=== PATIENT | male | born 1930 | race Caucasian/White ===

== ENCOUNTER 2017-01-29 16:17 | Emergency (ER) | payer MEDICARE, BC ==
[2017-01-29 16:47] VITALS: BP 160/41
--- NOTE | 2017-01-29 17:19 | EDM.PDOC ---
ED HPI GENERAL MEDICAL PROBLEM - General Chief Complaint: General Stated Complaint: FELL AT HOME Time Seen by Provider: 01/29/17 16:57 Source of Information: Reports: Family History Limitations: Reports: No limitations - History of Present Illness INITIAL COMMENTS - FREE TEXT/NARRATIVE: History of present illness: [86-year-old male is here with family. He was recently started on Cipro because he has a history of dementia and exposes himself and his sexual fantasies this was just started and since then he has become very unsteady on his feet and has fallen twice but has not hurt himself. Family is here wondering what to do] Review of systems: As per history of present illness and below otherwise all systems reviewed and negative. Past medical history: As per history of present illness and as reviewed below otherwise noncontributory. Surgical history: As per history of present illness and as reviewed below otherwise noncontributory. Social history: No reported history of drug or alcohol abuse. Family history: As per history of present illness and as reviewed below otherwise noncontributory. Physical exam: HEENT: Atraumatic, normocephalic, pupils reactive, negative for conjunctival pallor or scleral icterus, mucous membranes moist, throat clear, neck supple, nontender, trachea midline. Lungs: Clear to auscultation, breath sounds equal bilaterally, chest nontender. Heart: S1S2, regular, negative for clicks, rubs, or JVD. Abdomen: Soft, nondistended, nontender. Extremities: Atraumatic, Neuro: Awake, alert, Exam nonfocal. Diagnostics: [] Therapeutics: [] Impression: [Dementia with sexual fantasies acted out] Plan: [Had a long discussion with the family. It's frustrating problem. I think the risk of falling is greater than the risk of exposing himself at this point so we are recommending that this medication be stopped. They will followup with their primary care provider. We discussed the possibility that he may eventually need to be in a usp. We also discussed the possibility of involvement of the psychiatrist to try to see if another medication could be tried it would work for him and controlling this problem he has.] Definitive disposition and diagnosis as appropriate pending reevaluation and review of above. - Related Data Allergies Allergy/AdvReac Type Severity Reaction Status Date / Time Penicillins Allergy Cannot Verified 01/29/17 16:25 Remember Home Meds: Home Meds Aspirin [Ecotrin] 325 mg PO DAILY 11/25/13 [History] Atenolol 75 mg PO DAILY 11/25/13 [History] Famotidine [Pepcid] 10 mg PO DAILY 11/25/13 [History] Ferrous Sulfate [Iron Supplement] 325 mg PO DAILY 11/25/13 [History] Clopidogrel Bisulfate [Clopidogrel] 75 mg PO 11/26/13 [History] QUEtiapine Fumarate [Quetiapine Fumarate] 01/29/17 [History] Sulfamethoxazole/Trimethoprim [Sulfamethoxazole-Tmp Ds Tablet] 01/29/17 [ History] Past Medical History Cardiovascular History: Reports: CAD, Hypertension, Pacemaker Respiratory History: Reports: COPD, Pulmonary fibrosis Genitourinary History: Reports: UTI, recurrent Neurological History: Reports: CVA Psychiatric History: Reports: Dementia - Past Surgical History GI Surgical History: Reports: Cholecystectomy, Hernia repair/other Social & Family History - Tobacco Use Smoking Status *Q: Never Smoker Second Hand Smoke Exposure: No - Alcohol Use Days Per Week of Alcohol Use: 0 - Recreational Drug Use Recreational Drug Use: No ED ROS GENERAL - Review of Systems Review Of Systems: ROS reveals no pertinent complaints other than HPI. ED EXAM, GENERAL - Physical Exam Exam: See Below Course - Vital Signs Last Recorded V/S: Last Vital Signs Temp 37.7 C 01/29/17 16:45 Pulse 59 L 01/29/17 16:45 Resp 20 01/29/17 16:45 BP 160/41 H 01/29/17 16:45 Pulse Ox 98 01/29/17 16:45 Departure - Departure Time of Disposition: 17:18 Disposition: Home, Self-Care 01 Condition: fair Clinical Impression: Dementia Qualifiers: Dementia type: unspecified type Dementia behavioral disturbance: with behavioral disturbance Qualified Code(s): F03.91 - Unspecified dementia with behavioral disturbance Forms: ED Department Discharge Additional Instructions: As per our discussion make an appointment to see Dr. Alvarez again and work with him and trying to figure out what could be the best course to pursue. Involvement of all the family members and discussing this would be important social work might also be an option a psychiatrist may also be part of the team in trying to figure out what would be best to do.
== END 2017-01-29 17:38 | disposition home or self-care (01) ==
LOC: JP.ED 16:17
DX: F03.91 Unspecified dementia, unspecified severity, with behavioral disturbance (principal); I25.10 Atherosclerotic heart disease of native coronary artery without angina pectoris; I10 Essential (primary) hypertension; Z88.0 Allergy status to penicillin; Z79.82 Long term (current) use of aspirin; Z79.02 Long term (current) use of antithrombotics/antiplatelets; Z79.899 Other long term (current) drug therapy; Z95.0 Presence of cardiac pacemaker; Z98.890 Other specified postprocedural states
CPT/HCPCS: 99284

== ENCOUNTER 2017-01-30 07:28 | Observation (INO) | payer MEDICARE, BC ==
--- NOTE | 2017-01-30 09:27 | EDM.PDOC ---
ED HPI GENERAL MEDICAL PROBLEM - General Chief Complaint: General Stated Complaint: WEAKNESS Time Seen by Provider: 01/30/17 07:40 Source of Information: Reports: Patient, Family History Limitations: Reports: No limitations - History of Present Illness INITIAL COMMENTS - FREE TEXT/NARRATIVE: pt arrived with a 1 week history of frequent falls. He fell again last nite and did not injure himse;lf. He has a history of stage 3 kidney failure. he has not had a recent cat scan of the head. He hads a history of dementia. He has not been drinking or eating normally. Onset: gradual, other ( started 1 week ago. ) Duration: Day(s):, Getting worse Location: Reports: other ( Pt has been falling very frequently. ) Associated Symptoms: Reports: weakness, other (Pt is so weak in his arms and legs that he can,t help to get himself up. He has been falling frequently. ) - Related Data Allergies Allergy/AdvReac Type Severity Reaction Status Date / Time Penicillins Allergy Cannot Verified 01/29/17 16:25 Remember Home Meds: Home Meds Aspirin [Ecotrin] 325 mg PO DAILY 11/25/13 [History] Atenolol 75 mg PO DAILY 11/25/13 [History] Famotidine [Pepcid] 10 mg PO DAILY 11/25/13 [History] Ferrous Sulfate [Iron Supplement] 325 mg PO DAILY 11/25/13 [History] Clopidogrel Bisulfate [Clopidogrel] 75 mg PO DAILY 11/26/13 [History] QUEtiapine Fumarate [Quetiapine Fumarate] 01/29/17 [History] Sulfamethoxazole/Trimethoprim [Sulfamethoxazole-Tmp Ds Tablet] 01/29/17 [ History] Past Medical History HEENT History: Reports: Hard of hearing Cardiovascular History: Reports: CAD, Hypertension, Pacemaker Respiratory History: Reports: COPD, Pulmonary fibrosis Genitourinary History: Reports: UTI, recurrent Other Genitourinary History: stage 3 kidney disease Neurological History: Reports: CVA Psychiatric History: Reports: Dementia - Past Surgical History GI Surgical History: Reports: Cholecystectomy, Hernia repair/other Social & Family History - Tobacco Use Smoking Status *Q: Never Smoker Second Hand Smoke Exposure: No - Caffeine Use Caffeine Use: Reports: Coffee - Alcohol Use Days Per Week of Alcohol Use: 0 - Recreational Drug Use Recreational Drug Use: No ED ROS GENERAL - Review of Systems Review Of Systems: See Below Constitutional: Reports: no symptoms HEENT: Reports: No symptoms Respiratory: Reports: No Symptoms, Other ( history of copd. His o2 sats have been good. ) Cardiovascular: Reports: No symptoms Endocrine: Reports: no symptoms GI/Abdominal: Reports: No symptoms, Other ( intake is down at this point. ) : Reports: no symptoms Musculoskeletal: Reports: no symptoms Skin: Reports: no symptoms Neurological: Reports: Confusion, Difficulty Walking, Other (pt is falling frequently. ) ED EXAM, GENERAL - Physical Exam Exam: See Below Free Text/Narrative:: pt is very hard of hearing and this makes it difficult to communicate with the pt. He has been falling alot for the past week. He is very weak and having a difficult time helping himself get up and down. While he was oin ER he developed facial deviation. He remains alert. Exam Limited By: No limitations General Appearance: alert, no apparent distress, other ( rt pupil is larger than his left. He does have a history of an old injury and the family believes that it is always larger. While in Er he developed the facial devition. ) Ears: normal TMs Nose: normal inspection Throat/Mouth: Normal inspection Head: atraumatic Neck: normal inspection Respiratory/Chest: no respiratory distress Cardiovascular: regular rate, rhythm GI/Abdominal: soft, non tender (Male) Exam: Deferred Rectal (Males) Exam: Deferred Back Exam: normal inspection Extremities: normal inspection Course - Vital Signs Last Recorded V/S: Last Vital Signs Temp 36.3 C 02/01/17 08:00 Pulse 60 02/01/17 08:00 Resp 16 02/01/17 08:00 BP 106/75 02/01/17 08:00 Pulse Ox 93 L 02/01/17 08:00 - Orders/Labs/Meds Orders: Medication Orders Acetaminophen (Tylenol) 650 mg PO Q4H PRN PRN Reason: Pain (Mild 1-3)/fever Albuterol (Proventil Neb Soln) 2.5 mg NEB Q4H PRN PRN Reason: Shortness Of Breath/wheezing Last Admin: 01/30/17 21:23 Dose: 2.5 mg Aspirin (Ecotrin) 325 mg PO DAILY [facility] Last Admin: 02/01/17 08:28 Dose: 325 mg Admin: 01/31/17 09:10 Dose: 325 mg Admin: 01/30/17 14:51 Dose: 325 mg Atenolol (Tenormin) 75 mg PO DAILY [facility] Last Admin: 01/31/17 09:05 Dose: 75 mg Admin: 01/30/17 14:50 Dose: 75 mg Atropine Sulfate (Atropine 1%) 0 ml SL Q2H PRN PRN Reason: Congestion Bisacodyl (Dulcolax) 10 mg RECTAL DAILY PRN PRN Reason: Constipation Last Admin: 01/31/17 10:20 Dose: 10 mg Clopidogrel Bisulfate (Plavix) 75 mg PO DAILY [facility] Last Admin: 02/01/17 08:25 Dose: 75 mg Admin: 01/31/17 08:59 Dose: 75 mg Admin: 01/30/17 14:50 Dose: 75 mg Docusate Sodium (Colace) 100 mg PO BID PRN PRN Reason: Constipation Last Admin: 02/01/17 08:28 Dose: 100 mg Famotidine (Pepcid) 10 mg PO DAILY [facility] Last Admin: 02/01/17 08:27 Dose: 10 mg Admin: 01/31/17 09:01 Dose: 10 mg Admin: 01/30/17 15:21 Dose: 10 mg Ferrous Sulfate (Ferrous Sulfate) 325 mg PO DAILY [facility] Last Admin: 02/01/17 08:31 Dose: 325 mg Admin: 01/31/17 09:01 Dose: 325 mg Lorazepam (Ativan Oral Concentrate 1mg/0.5 Ml U/D) 0.5 - 1 mg BUCCAL Q2H PRN PRN Reason: Anxiety Last Admin: 02/01/17 04:32 Dose: 1 mg Magnesium Hydroxide (Milk Of Magnesia) 30 ml PO Q12H PRN PRN Reason: Constipation Morphine Sulfate (Morphine 10 Mg/0.5 Ml Oral Syringe) 5 mg SL Q1H PRN PRN Reason: Pain Last Admin: 02/01/17 05:28 Dose: 5 mg Admin: 02/01/17 02:33 Dose: 5 mg Admin: 02/01/17 01:25 Dose: 5 mg Admin: 01/31/17 21:25 Dose: 5 mg Admin: 01/30/17 20:13 Dose: 5 mg Admin: 01/30/17 16:58 Dose: 5 mg Scopolamine Patch (Check) 1 each TOP DAILY [facility] Last Admin: 02/01/17 09:09 Dose: Ondansetron HCl (Zofran Odt) 4 mg PO Q6H PRN PRN Reason: Nausea able to take PO Oxycodone HCl (Oxycodone) 5 mg PO Q4H PRN PRN Reason: Pain (moderate 4-6) Last Admin: 02/01/17 08:28 Dose: 5 mg Admin: 01/30/17 21:23 Dose: 5 mg Polyethylene Glycol (Miralax) 17 gm PO DAILY PRN PRN Reason: Constipation Last Admin: 02/01/17 08:40 Dose: 17 gm Scopolamine (Transderm-Scop) 1.5 mg TOP Q72H [facility] Last Admin: 02/01/17 02:36 Dose: 1.5 mg Sodium Chloride (Saline Flush) 10 ml FLUSH ASDIRECTED PRN PRN Reason: Keep Vein Open Labs: Laboratory Tests 01/30/17 01/30/17 01/30/17 Range/Units 07:38 07:38 10:26 WBC 9.5 (4.5-11.0) K/uL RBC 4.84 (4.30-5.90) M/uL Hgb 13.3 (12.0-15.0) g/dL Hct 40.8 (40.0-54.0) % MCV 84 (80-98) fL MCH 28 (27-31) pg MCHC 33 (32-36) % Plt Count 239 (150-400) K/uL Neut % (Auto) 75 H (36-66) % Lymph % (Auto) 12 L (24-44) % [place] % (Auto) 13 H (2-6) % Eos % (Auto) 0 L (2-4) % Baso % (Auto) 0 (0-1) % Sodium 134 L (140-148) mmol/L Potassium 5.0 (3.6-5.2) mmol/L Chloride 101 (100-108) mmol/L Carbon Dioxide 21 (21-32) mmol/L Anion Gap 17.0 H (5.0-14.0) mmol/L BUN 28 H (7-18) mg/dL Creatinine 2.2 H (0.8-1.3) mg/dL Est Cr Clr Drug Dosing 24.62 mL/min Estimated GFR (MDRD) 28 L (>60) Glucose 124 H (74-106) mg/dL Calcium 9.2 (8.5-10.1) mg/dL Total Bilirubin 0.5 (0.2-1.0) mg/dL AST 21 (15-37) U/L ALT 18 (12-78) U/L Alkaline Phosphatase 63 (46-116) U/L Total Protein 7.7 (6.4-8.2) g/dL Albumin 3.6 (3.4-5.0) g/dL Globulin 4.1 H (2.3-3.5) g/dL Albumin/Globulin Ratio 0.9 L (1.2-2.2) Urine Color Yellow Urine Appearance Slightly cloudy Urine pH 5.0 (4.5-8.0) Ur Specific [place] 1.020 (1.008-1.030) Urine Protein Negative (NEGATIVE) mg/dL Urine Glucose (UA) Normal (NEGATIVE) mg/dL Urine Ketones Negative (NEGATIVE) mg/dL Urine Occult Blood Negative (NEGATIVE) Urine Nitrite Negative (NEGAITVE) Urine Bilirubin Negative (NEGATIVE) Urine Urobilinogen Normal (NORMAL) mg/dL Ur Leukocyte Esterase Small (NEGATIVE) Urine RBC Not seen (0-5) Urine WBC 0-5 (0-5) Ur Epithelial Cells Rare Amorphous Sediment Moderate Urine Bacteria Rare Urine Mucus Moderate Meds: Medications Generic Name Dose Route Start Last Admin Trade Name Freq PRN Reason Stop Dose Admin Acetaminophen 650 mg 01/30/17 13:01 Tylenol PO Q4H PRN Pain (Mild 1-3)/fever Albuterol 2.5 mg 01/30/17 13:01 01/30/17 21:23 Proventil Neb Soln NEB 2.5 mg Q4H PRN Administration Shortness Of Breath/wheezing Aspirin 325 mg 01/30/17 14:00 02/01/17 08:28 Ecotrin PO 325 mg DAILY [facility] Administration Atenolol 75 mg 01/30/17 14:00 01/31/17 09:05 Tenormin PO 75 mg DAILY [facility] Administration Atropine Sulfate 0 ml 02/01/17 07:18 Atropine 1% SL Q2H PRN Congestion Bisacodyl 10 mg 01/31/17 10:10 01/31/17 10:20 Dulcolax RECTAL 10 mg DAILY PRN Administration Constipation Clopidogrel Bisulfate 75 mg 01/30/17 14:00 02/01/17 08:25 Plavix PO 75 mg DAILY [facility] Administration Docusate Sodium 100 mg 01/30/17 13:01 02/01/17 08:28 Colace PO 100 mg BID PRN Administration Constipation Famotidine 10 mg 01/30/17 14:00 02/01/17 08:27 Pepcid PO 10 mg DAILY [facility] Administration Ferrous Sulfate 325 mg 01/31/17 09:00 02/01/17 08:31 Ferrous Sulfate PO 325 mg DAILY [facility] Administration Lorazepam 0.5 - 1 mg 02/01/17 02:25 02/01/17 04:32 Ativan Oral Concentrate 1mg/0.5 Ml U/D BUCCAL 1 mg Q2H PRN Administration Anxiety Magnesium Hydroxide 30 ml 01/30/17 13:01 Milk Of Magnesia PO Q12H PRN Constipation Morphine Sulfate 5 mg 01/30/17 13:01 02/01/17 05:28 Morphine 10 Mg/0.5 Ml Oral Syringe SL 5 mg Q1H PRN Administration Pain Scopolamine Patch 1 each 02/01/17 09:00 02/01/17 09:09 Check TOP Not Given DAILY [facility] Ondansetron HCl 4 mg 01/30/17 13:01 Zofran Odt PO Q6H PRN Nausea able to take PO Oxycodone HCl 5 mg 01/30/17 13:01 02/01/17 08:28 Oxycodone PO 5 mg Q4H PRN Administration Pain (moderate 4-6) Polyethylene Glycol 17 gm 01/30/17 13:01 02/01/17 08:40 Miralax PO 17 gm DAILY PRN Administration Constipation Scopolamine 1.5 mg 02/01/17 02:30 02/01/17 02:36 Transderm-Scop TOP 1.5 mg Q72H [facility] Administration Sodium Chloride 10 ml 01/30/17 13:01 Saline Flush FLUSH ASDIRECTED PRN Keep Vein Open Discontinued Medications Generic Name Dose Route Start Last Admin Trade Name Freq PRN Reason Stop Dose Admin Atropine Sulfate 0 ml 02/01/17 02:17 02/01/17 02:35 Atropine 1% SL 2 drop Q2H PRN Administration Congestion Sodium Chloride 1,000 mls @ 500 mls/hr 01/30/17 09:30 01/30/17 09:45 Normal Saline IV 500 mls/hr ASDIRECTED [facility]BY Administration Sodium Chloride 1,000 mls @ 125 mls/hr 01/30/17 13:01 01/31/17 04:15 Normal Saline IV 125 mls/hr ASDIRECTED [facility] Administration Sodium Chloride 1,000 mls @ 50 mls/hr 01/31/17 14:15 01/31/17 16:24 Normal Saline IV 50 mls/hr ASDIRECTED [facility]BY Administration Lidocaine HCl Confirm 01/30/17 10:09 01/30/17 14:01 Xylocaine 2% Jelly Administered 01/30/17 10:10 Not Given Dose 10 ml .ROUTE .STK-MED ONE Lidocaine HCl Confirm 01/31/17 05:15 01/31/17 05:23 Xylocaine 2% Jelly Administered 01/31/17 05:16 10 ml Dose Administration 10 ml .ROUTE .STK-MED ONE Lidocaine HCl 10 ml 01/31/17 05:15 01/31/17 20:52 Xylocaine 2% Jelly MUCMEM 01/31/17 05:16 Not Given ONETIME ONE Lorazepam 0.5 mg 01/30/17 13:01 02/01/17 01:31 Ativan Oral Concentrate 1mg/0.5 Ml U/D BUCCAL 0.5 mg Q2H PRN Administration Anxiety - Re-Assessments/Exams Free Text/Narrative Re-Assessment/Exam: 01/30/17 10:07 Pt arrived with a history of increased falling. This has acutely started about 1 week ago. He had a cat scan of the head that did not reveal acute changes. While in Er he developed facial deviation and appeared to have difficulty lifting his left arm. These symptoms developed after the cat scan was done. This situation was discussed with the family and they definitely did not want to go to [place]. They felt he should be conservatively managed. 01/30/17 10:11 Departure - Departure Time of Disposition: 10:00 Disposition: Admitted As Inpatient 64 Condition: fair Clinical Impression: Stroke-like symptom, Confusion, Renal insufficiency
[2017-01-30] MEDS ORDERED: Sodium Chloride 0.9% 1,000 ML IV SCH (09:30)
--- NOTE | 2017-01-30 09:51 | CT ---
Head wo Cont INDICATION: Frequent falls. Total DLP 660. COMPARISON: CT 07/03/2013. FINDINGS: No acute intracranial hemorrhage, mass, or edema. Generalized cerebral and cerebellar volu me loss. Chronic white matter infarct right frontal lobe, unchanged. Patchy low attenuation in the p eriventricular and subcortical deep white matter is nonspecific, but most compatible with chronic sm all-vessel ischemic changes. Chronic lacunar infarcts bilateral basal ganglia. Remainder unremarkabl e. IMPRESSION: No acute intracranial abnormality.
[2017-01-30] MEDS ORDERED: Lidocaine 2% Jelly 10 ML Urojet ONE (10:09)
--- NOTE | 2017-01-30 11:57 | PCM.HP ---
H&P History of Present Illness - General Date of Service: 01/30/17 Admit Problem/Dx: Admission Diagnosis/Problem Admission Diagnosis/Problem CVA, Cerebrovascular accident Source of Information: Family, Old records, Provider, RN notes reviewed History Limitations: Reports: Altered mental status (Dementia) - History of Present Illness Initial Comments - Free Text/Narative: Mr. Mondragon is an 86-year-old gentleman was admitted to observation status through the emergency department because of progressive weakness and increased confusion. He is had a long-standing history of progressive dementia, over the past week has become more weak with frequent falls and increasing confusion. He 's been evaluated in the emergency department, there is no evidence of underlying infection or significant metabolic abnormality. CT scan of the head without contrast was unremarkable. He's had a previous CVA and previous left carotid endarterectomy. While in the emergency Department developed left facial weakness and weakness of his left upper extremity which has persisted. Discussion was held with family concerning their wish for further evaluation and management. They feel that it's very consistent with his previously expressed wishes that we not proceed with further aggressive interventions or evaluation. They would like to proceed with palliative care and comfort cares only. - Related Data Allergies/Adverse Reactions: Allergies Allergy/AdvReac Type Severity Reaction Status Date / Time Penicillins Allergy Cannot Verified 01/29/17 16:25 Remember Home Medications: Home Meds Aspirin [Ecotrin] 325 mg PO DAILY 11/25/13 [History] Atenolol 75 mg PO DAILY 11/25/13 [History] Famotidine [Pepcid] 10 mg PO DAILY 11/25/13 [History] Ferrous Sulfate [Iron Supplement] 325 mg PO DAILY 11/25/13 [History] Clopidogrel Bisulfate [Clopidogrel] 75 mg PO ASDIRECTED 11/26/13 [History] QUEtiapine Fumarate [Quetiapine Fumarate] 01/29/17 [History] Sulfamethoxazole/Trimethoprim [Sulfamethoxazole-Tmp Ds Tablet] 01/29/17 [ History] Past Medical History HEENT History: Reports: Hard of hearing Cardiovascular History: Reports: CAD, Hypertension, Pacemaker Respiratory History: Reports: COPD, Pulmonary fibrosis Genitourinary History: Reports: UTI, recurrent Other Genitourinary History: stage 3 kidney disease Neurological History: Reports: CVA Psychiatric History: Reports: Dementia - Past Surgical History GI Surgical History: Reports: Cholecystectomy, Hernia repair/other Social & Family History - Tobacco Use Smoking Status *Q: Never Smoker Second Hand Smoke Exposure: No - Caffeine Use Caffeine Use: Reports: Coffee - Alcohol Use Days Per Week of Alcohol Use: 0 - Recreational Drug Use Recreational Drug Use: No H&P Review of Systems - Review of Systems: Review Of Systems: Unable To Obtain General: Reports: ROS unobtainable (Dementia) Exam - Exam Exam: See Below - Vital Signs Vital Signs: Last Vital Signs Temp 98.6 F 01/30/17 10:00 Pulse 62 01/30/17 10:00 Resp 16 01/30/17 10:00 BP 143/74 H 01/30/17 10:00 Pulse Ox 97 01/30/17 10:00 Weight: 217 lb 15.995 oz - Exam Quality Assessment: urinary catheter General: cooperative, moderate distress HEENT: EOMI, Nares patent, Normal nasal septum, Posterior pharynx clear, Pupils equal, Pupils reactive. No: Hearing intact, Mucosa moist & pink Neck: supple, trachea midline, +2 carotid pulse wo bruit Lungs: Clear to auscultation, Normal respiratory effort Cardiovascular: regular rate, regular rhythm, normal S1, normal S2, systolic murmur. No: irregular rhythm, bradycardia, tachycardia, diastolic murmur Abdomen: normal bowel sounds, soft Back Exam: normal inspection, full range of motion, NT Extremities: 3, normal inspection, 10 Skin: warm, dry, intact Neuro Extensive - Mental Status: alert, other (Left facial weakness and weakness of the left upper extremity). No: oriented x3, normal cognition, memory intact - Patient Data Lab Results last 24 hrs: Laboratory Results - last 24 hr 01/30/17 01/30/17 01/30/17 Range/Units 07:38 07:38 10:26 WBC 9.5 (4.5-11.0) K/uL RBC 4.84 (4.30-5.90) M/uL Hgb 13.3 (12.0-15.0) g/dL Hct 40.8 (40.0-54.0) % MCV 84 (80-98) fL MCH 28 (27-31) pg MCHC 33 (32-36) % Plt Count 239 (150-400) K/uL Neut % (Auto) 75 H (36-66) % Lymph % (Auto) 12 L (24-44) % [place] % (Auto) 13 H (2-6) % Eos % (Auto) 0 L (2-4) % Baso % (Auto) 0 (0-1) % Sodium 134 L (140-148) mmol/L Potassium 5.0 (3.6-5.2) mmol/L Chloride 101 (100-108) mmol/L Carbon Dioxide 21 (21-32) mmol/L Anion Gap 17.0 H (5.0-14.0) mmol/L BUN 28 H (7-18) mg/dL Creatinine 2.2 H (0.8-1.3) mg/dL Est Cr Clr Drug Dosing 24.62 mL/min Estimated GFR (MDRD) 28 L (>60) Glucose 124 H (74-106) mg/dL Calcium 9.2 (8.5-10.1) mg/dL Total Bilirubin 0.5 (0.2-1.0) mg/dL AST 21 (15-37) U/L ALT 18 (12-78) U/L Alkaline Phosphatase 63 (46-116) U/L Total Protein 7.7 (6.4-8.2) g/dL Albumin 3.6 (3.4-5.0) g/dL Globulin 4.1 H (2.3-3.5) g/dL Albumin/Globulin Ratio 0.9 L (1.2-2.2) Urine Color Yellow Urine Appearance Slightly cloudy Urine pH 5.0 (4.5-8.0) Ur Specific [place] 1.020 (1.008-1.030) Urine Protein Negative (NEGATIVE) mg/dL Urine Glucose (UA) Normal (NEGATIVE) mg/dL Urine Ketones Negative (NEGATIVE) mg/dL Urine Occult Blood Negative (NEGATIVE) Urine Nitrite Negative (NEGAITVE) Urine Bilirubin Negative (NEGATIVE) Urine Urobilinogen Normal (NORMAL) mg/dL Ur Leukocyte Esterase Small (NEGATIVE) Urine RBC Not seen (0-5) Urine WBC 0-5 (0-5) Ur Epithelial Cells Rare Amorphous Sediment Moderate Urine Bacteria Rare Urine Mucus Moderate Result Diagrams: 01/30/17 07:38 01/30/17 07:38 *Q Meaningful Use (ADM) - VTE *Q VTE Criteria *Q: VTE Pharmacological Contraindications *Q: Not Candidate LT Anticoag - VTE Risk Assess *Q Each Risk Factor Represents 1 Point: Obesity (BMI greater than 30) Total Score 1 Point Risk Factors: 1 Each Risk Factor Represents 2 Points: None Total Score 2 Point Risk Factors: 0 Each Risk Factor Represents 3 Points: Age 75 Years or Greater Total Score 3 Point Risk Factors: 3 Each Risk Factor Represents 5 Points: Stroke, Less than 1 Month Total Score 5 Point Risk Factors: 5 Venous Thromboembolism Risk Factor Score *Q: 9 - Stroke *Q Stroke Criteria *Q: - AMI *Q AMI Criteria *Q: Problem List Initiated/Reviewed/Updated: Yes Orders Last 24hrs: Active Orders 24 hr Category Date Time Status Patient Status Manage Transfer [TRANSFER] Routine ADT 01/30/17 11:38 Ordered Cardiac Monitoring [RC] .As Directed Care 01/30/17 09:53 Active EKG Documentation Completion [RC] ASDIRECTED Care 01/30/17 09:55 Active Sodium Chloride 0.9% [Normal Saline] 1,000 ml Med 01/30/17 09:30 Active IV ASDIRECTED Resuscitation Status Routine Resus Stat 01/30/17 11:42 Ordered EKG 12 Lead [EK] Routine Ther 01/30/17 09:55 Ordered Medication Orders Sodium Chloride (Normal Saline) 1,000 mls @ 500 mls/hr IV ASDIRECTED [facility] Last Admin: 01/30/17 09:45 Dose: 500 mls/hr Assessment/Plan Comment:: ASSESSMENT AND PLAN RIGHT CVA-during evaluation in the emergency Department developed left facial weakness and left upper extremity weakness. Question as to whether he may have been having repeated TIAs at home. He has had a previous left CVA and left carotid endarterectomy. After discussion with family they do not want to proceed with further aggressive evaluation or intervention. His is no longer able for him at home and he will likely require long term placement versus discharge to home with hospice. -Continue aspirin and Plavix -No further evaluation or interventions PALLIATIVE CARE-patient is unable to make decisions for himself because of underlying dementia. Family feels strongly feels that it is consistent with his previously expressed wishes that we proceed with comfort cares only. DEMENTIA MAINTENANCE ISSUES -DVT prophylaxis; comfort cares only -GI prophylaxis; continue outpatient H2 colin therapy -Benavidez catheter; will remove Benavidez catheter placed in the emergency department -Nutrition; regular diet if tolerated -Nicotinic dependence; not required CODE STATUS-DNR/DNI, COMFORT CARES ONLY ADMISSION STATUS-this patient will be admitted to observation status, expect no more than a one night hospital stay for evaluation and management of problems as outlined above. DISPOSITION-anticipate discharge to home with hospice versus long term placement PRIMARY CARE PROVIDER-Dr. Alvarez
[2017-01-30] MEDS ORDERED: Magnesium Hydroxide 400 MG/5 ML Susp 30 ML Cup PO PRN (13:01)
[2017-01-30] MEDS ORDERED: Polyethylene Glycol 3350 Powder 17 GM Packet PO PRN (13:01)
[2017-01-30] MEDS ORDERED: Albuterol 0.083% 2.5 MG/3 ML Neb Soln NEB PRN (13:01)
[2017-01-30] MEDS ORDERED: Sodium Chloride 0.9% 10 ML Syringe FLUSH PRN (13:01)
[2017-01-30] MEDS ORDERED: Acetaminophen 325 MG Tab PO PRN (13:01)
[2017-01-30] MEDS ORDERED: Docusate Sodium 100 MG Cap PO PRN (13:01)
[2017-01-30] MEDS ORDERED: Ondansetron 4 MG Tab.DIS PO PRN (13:01)
[2017-01-30] MEDS: Sodium Chloride 0.9% 1,000 ML IV SCH ×2 (13:27→20:24)
[2017-01-30] MEDS: Clopidogrel 75 MG Tab (PTOM) PO SCH (14:50)
[2017-01-30] MEDS: ATENOLOL 50 MG PO SCH (14:50)
[2017-01-30] MEDS: Aspirin 325 MG Tab.EC PO SCH (14:51)
[2017-01-30] MEDS: LORazepam ORAL Concentrate 1MG/0.5ML U/D BUCCAL PRN ×2 (15:20→18:46)
[2017-01-30] MEDS: Famotidine 20 MG Tab PO SCH (15:21)
[2017-01-30] MEDS: Morphine 10 MG/0.5 ML Oral Syringe SL PRN ×2 (16:58→20:13)
[2017-01-30] MEDS: oxyCODONE 5 MG Tab PO PRN (21:23)
[2017-01-31] MEDS: Sodium Chloride 0.9% 1,000 ML IV SCH (04:15)
[2017-01-31] MEDS ORDERED: Lidocaine 2% Jelly 10 ML Urojet ONE (05:15)
[2017-01-31] MEDS ORDERED: Lidocaine 2% Jelly 10 ML Urojet MUCMEM ONE (05:15)
[2017-01-31] MEDS: Clopidogrel 75 MG Tab (PTOM) PO SCH (08:59)
[2017-01-31] MEDS ORDERED: FAMOTIDINE 10 MG PO SCH (09:00)
[2017-01-31] MEDS: Famotidine 20 MG Tab PO SCH (09:01)
[2017-01-31] MEDS: Ferrous Sulfate 325 MG Tab PO SCH (09:01)
[2017-01-31] MEDS: ATENOLOL 50 MG PO SCH (09:05)
[2017-01-31] MEDS: Aspirin 325 MG Tab.EC PO SCH (09:10)
[2017-01-31] MEDS: Bisacodyl 10 MG Supp RECTAL PRN (10:20)
[2017-01-31] MEDS: LORazepam ORAL Concentrate 1MG/0.5ML U/D BUCCAL PRN (13:32)
[2017-01-31] MEDS ORDERED: Sodium Chloride 0.9% 1,000 ML IV SCH (14:15)
--- NOTE | 2017-01-31 14:18 | PCM.PN ---
- General Info Date of Service: 01/31/17 Functional Status: Denies: tolerating diet, urinating - Review of Systems General: Reports: Weakness Neurological: Reports: Weakness, Change in Speech Systems Review Comment:: This patient is an 86-year-old gentleman who is admitted with new neurologic deficits yesterday. Since then he's had persistent left facial weakness as well as some weakness in his left upper extremity. He has not lost all movement in the left upper extremity but it is obviously weak. He is become more confused and not recognizing family members and has had obvious difficulty in swallowing with coughing and choking very evident. - Patient Data Vitals - most recent: Last Vital Signs Temp 96.3 F 01/31/17 10:49 Pulse 62 01/31/17 10:49 Resp 20 01/31/17 10:49 BP 155/102 H 01/31/17 10:49 Pulse Ox 97 01/31/17 10:49 Weight - most recent: 217 lb 15.995 oz I&O - last 24 hours: Intake & Output 01/30/17 01/31/17 01/31/17 22:59 06:59 14:59 Intake Total 240 1799 120 Output Total 500 450 350 Balance -260 1349 -230 Med Orders - Current: Current Medications Acetaminophen (Tylenol) 650 mg PO Q4H PRN PRN Reason: Pain (Mild 1-3)/fever Albuterol (Proventil Neb Soln) 2.5 mg NEB Q4H PRN PRN Reason: Shortness Of Breath/wheezing Last Admin: 01/30/17 21:23 Dose: 2.5 mg Aspirin (Ecotrin) 325 mg PO DAILY [facility] Last Admin: 01/31/17 09:10 Dose: 325 mg Atenolol (Tenormin) 75 mg PO DAILY [facility] Last Admin: 01/31/17 09:05 Dose: 75 mg Bisacodyl (Dulcolax) 10 mg RECTAL DAILY PRN PRN Reason: Constipation Last Admin: 01/31/17 10:20 Dose: 10 mg Clopidogrel Bisulfate (Plavix) 75 mg PO DAILY [facility] Last Admin: 01/31/17 08:59 Dose: 75 mg Docusate Sodium (Colace) 100 mg PO BID PRN PRN Reason: Constipation Famotidine (Pepcid) 10 mg PO DAILY [facility] Last Admin: 01/31/17 09:01 Dose: 10 mg Ferrous Sulfate (Ferrous Sulfate) 325 mg PO DAILY [facility] Last Admin: 01/31/17 09:01 Dose: 325 mg Sodium Chloride (Normal Saline) 1,000 mls @ 50 mls/hr IV ASDIRECTED [facility] Lorazepam (Ativan Oral Concentrate 1mg/0.5 Ml U/D) 0.5 mg BUCCAL Q2H PRN PRN Reason: Anxiety Last Admin: 01/31/17 13:32 Dose: 0.5 mg Magnesium Hydroxide (Milk Of Magnesia) 30 ml PO Q12H PRN PRN Reason: Constipation Morphine Sulfate (Morphine 10 Mg/0.5 Ml Oral Syringe) 5 mg SL Q1H PRN PRN Reason: Pain Last Admin: 01/30/17 20:13 Dose: 5 mg Ondansetron HCl (Zofran Odt) 4 mg PO Q6H PRN PRN Reason: Nausea able to take PO Oxycodone HCl (Oxycodone) 5 mg PO Q4H PRN PRN Reason: Pain (moderate 4-6) Last Admin: 01/30/17 21:23 Dose: 5 mg Polyethylene Glycol (Miralax) 17 gm PO DAILY PRN PRN Reason: Constipation Sodium Chloride (Saline Flush) 10 ml FLUSH ASDIRECTED PRN PRN Reason: Keep Vein Open Discontinued Medications Sodium Chloride (Normal Saline) 1,000 mls @ [facility] Last Admin: 01/30/17 09:45 Dose: 500 mls/hr Sodium Chloride (Normal Saline) 1,000 mls @ 125 [facility]ls[facility] Last Admin: 01/31/17 04:15 Dose: 125 mls/hr Lidocaine HCl (Xylocaine 2% Jelly) Confirm Administered Dose 10 ml .ROUTE .STK- MED ONE Stop: 01/30/17 10:10 Last Admin: 01/30/17 14:01 Dose: Not Given Lidocaine HCl (Xylocaine 2% Jelly) Confirm Administered Dose 10 ml .ROUTE .STK- MED ONE Stop: 01/31/17 05:16 Last Admin: 01/31/17 05:23 Dose: 10 ml Lidocaine HCl (Xylocaine 2% Jelly) 10 ml MUCMEM ONETIME ONE Stop: 01/31/17 05:16 - Exam Quality Assessment: urine catheter General: mild distress Lungs: Clear to auscultation, Normal respiratory effort Cardiovascular: Regular Rate, Regular Rhythm, No Murmurs Abdomen: bowel sounds present, soft, no tenderness, no distension Extremities: no edema Skin: warm, dry, intact Neurological: other (Persistent left facial and left upper extremity weakness). No: no new focal deficit, strength equal bilateral - Problem List Review Problem List Initiated/Reviewed/Updated: Yes - My Orders Last 24 Hours: My Active Orders 01/30/17 14:00 Famotidine [Pepcid] 10 mg PO DAILY 01/31/17 04:50 Urinary Catheter Assessment [RC] ASDIRECTED 01/31/17 05:15 Insert Benavidez Catheter [Insert Urinary Catheter] [OM.PC] Q24H 01/31/17 10:10 Bisacodyl [Dulcolax] 10 mg RECTAL DAILY PRN 01/31/17 14:15 Sodium Chloride 0.9% @ 50 MLS/HR(1000ml) Sodium Chloride 0.9% [Normal Saline] 1 ,000 ml IV ASDIRECTED - Plan Plan:: ASSESSMENT AND PLAN RIGHT CVA-persistent weakness in the left face and left upper extremity. He is become more confused and lethargic. He has obvious difficulty with swallowing and he is at high risk for aspiration. -Continue aspirin and Plavix -No further evaluation or interventions -Family wishes that the patient be allowed to eat despite risk of aspiration -Thickened liquids and soft foods only PALLIATIVE CARE-patient is unable to make decisions for himself because of underlying dementia. Family feels strongly feels that it is consistent with his previously expressed wishes that we proceed with comfort cares only. DEMENTIA MAINTENANCE ISSUES -DVT prophylaxis; comfort cares only -GI prophylaxis; continue outpatient H2 colin therapy -Benavidez catheter; will remove Benavidez catheter placed in the emergency department -Nutrition; regular diet if tolerated -Nicotinic dependence; not required CODE STATUS-DNR/DNI, COMFORT CARES ONLY ADMISSION STATUS-this patient will be admitted to observation status, expect no more than a one night hospital stay for evaluation and management of problems as outlined above. DISPOSITION-anticipate discharge to [facility] PRIMARY CARE PROVIDER-Dr. Alvarez
[2017-01-31] MEDS: Morphine 10 MG/0.5 ML Oral Syringe SL PRN (21:25)
[2017-02-01] MEDS: Morphine 10 MG/0.5 ML Oral Syringe SL PRN ×4 (01:25→21:45)
[2017-02-01] MEDS: LORazepam ORAL Concentrate 1MG/0.5ML U/D BUCCAL PRN ×2 (01:31→04:32)
[2017-02-01] MEDS ORDERED: Atropine Sulfate Ophth 2 ML Drops SL PRN ×2 (02:17→07:18)
[2017-02-01] MEDS ORDERED: Scopolamine 1.5 MG Transdermal Patch TOP SCH (02:30)
[2017-02-01] MEDS: Clopidogrel 75 MG Tab (PTOM) PO SCH (08:25)
[2017-02-01] MEDS: Famotidine 20 MG Tab PO SCH (08:27)
[2017-02-01] MEDS: Aspirin 325 MG Tab.EC PO SCH (08:28)
[2017-02-01] MEDS: oxyCODONE 5 MG Tab PO PRN ×2 (08:28→18:38)
[2017-02-01] MEDS: Ferrous Sulfate 325 MG Tab PO SCH (08:31)
[2017-02-01] MEDS: SCOPOLAMINE PATCH CHECK TOP SCH (09:09)
[2017-02-01] MEDS: ATENOLOL 50 MG PO SCH (09:46)
--- NOTE | 2017-02-01 11:45 | PCM.PN ---
- General Info Date of Service: 02/01/17 Functional Status: Reports: pain controlled - Review of Systems General: Reports: Weakness, Fatigue. Denies: Fever, Chills Neurological: Reports: Other (Weakness left face and left upper extremity) Systems Review Comment:: This patient has shown further decline over the past 24 hours, more lethargic with persistent left facial and left upper extremity weakness. He is currently on comfort cares only, family has requested that he not be fed unless he is requesting something to eat. Since the stroke has shown marked difficulty with swallowing, and is at high risk for aspiration. - Patient Data Vitals - most recent: Last Vital Signs Temp 97.4 F 02/01/17 08:00 Pulse 60 02/01/17 09:46 Resp 16 02/01/17 08:00 BP 106/75 02/01/17 09:46 Pulse Ox 93 L 02/01/17 08:00 Weight - most recent: 217 lb 15.995 oz I&O - last 24 hours: Intake & Output 01/31/17 02/01/17 02/01/17 22:59 06:59 14:59 Output Total 350 500 Balance -350 -500 Med Orders - Current: Current Medications Acetaminophen (Tylenol) 650 mg PO Q4H PRN PRN Reason: Pain (Mild 1-3)/fever Albuterol (Proventil Neb Soln) 2.5 mg NEB Q4H PRN PRN Reason: Shortness Of Breath/wheezing Last Admin: 01/30/17 21:23 Dose: 2.5 mg Aspirin (Ecotrin) 325 mg PO DAILY [facility] Last Admin: 02/01/17 08:28 Dose: 325 mg Atenolol (Tenormin) 75 mg PO DAILY [facility] Last Admin: 02/01/17 09:46 Dose: 75 mg Atropine Sulfate (Atropine 1%) 0 ml SL Q2H PRN PRN Reason: Congestion Bisacodyl (Dulcolax) 10 mg RECTAL DAILY PRN PRN Reason: Constipation Last Admin: 01/31/17 10:20 Dose: 10 mg Clopidogrel Bisulfate (Plavix) 75 mg PO DAILY [facility] Last Admin: 02/01/17 08:25 Dose: 75 mg Docusate Sodium (Colace) 100 mg PO BID PRN PRN Reason: Constipation Last Admin: 02/01/17 08:28 Dose: 100 mg Famotidine (Pepcid) 10 mg PO DAILY [facility] Last Admin: 02/01/17 08:27 Dose: 10 mg Ferrous Sulfate (Ferrous Sulfate) 325 mg PO DAILY [facility] Last Admin: 02/01/17 08:31 Dose: 325 mg Lorazepam (Ativan Oral Concentrate 1mg/0.5 Ml U/D) 0.5 - 1 mg BUCCAL Q2H PRN PRN Reason: Anxiety Last Admin: 02/01/17 04:32 Dose: 1 mg Magnesium Hydroxide (Milk Of Magnesia) 30 ml PO Q12H PRN PRN Reason: Constipation Morphine Sulfate (Morphine 10 Mg/0.5 Ml Oral Syringe) 5 mg SL Q1H PRN PRN Reason: Pain Last Admin: 02/01/17 05:28 Dose: 5 mg Scopolamine Patch (Check) 1 each TOP DAILY [facility] Last Admin: 02/01/17 09:09 Dose: Not Given Ondansetron HCl (Zofran Odt) 4 mg PO Q6H PRN PRN Reason: Nausea able to take PO Oxycodone HCl (Oxycodone) 5 mg PO Q4H PRN PRN Reason: Pain (moderate 4-6) Last Admin: 02/01/17 08:28 Dose: 5 mg Polyethylene Glycol (Miralax) 17 gm PO DAILY PRN PRN Reason: Constipation Last Admin: 02/01/17 08:40 Dose: 17 gm Scopolamine (Transderm-Scop) 1.5 mg TOP Q72H [facility] Last Admin: 02/01/17 02:36 Dose: 1.5 mg Sodium Chloride (Saline Flush) 10 ml FLUSH ASDIRECTED PRN PRN Reason: Keep Vein Open Discontinued Medications Atropine Sulfate (Atropine 1%) 0 ml SL Q2H PRN PRN Reason: Congestion Last Admin: 02/01/17 02:35 Dose: 2 drop Sodium Chloride (Normal Saline) 1,000 mls @ 500 mls/hr IV ASDIRECTED [facility] Last Admin: 01/30/17 09:45 Dose: 500 mls/hr Sodium Chloride (Normal Saline) 1,000 mls @ 125 mls/hr IV ASDIRECTED [facility] Last Admin: 01/31/17 04:15 Dose: 125 mls/hr Sodium Chloride (Normal Saline) 1,000 mls @ 50 mls/hr IV ASDIRECTED [facility] Last Admin: 01/31/17 16:24 Dose: 50 mls/hr Lidocaine HCl (Xylocaine 2% Jelly) Confirm Administered Dose 10 ml .ROUTE .STK- MED ONE Stop: 01/30/17 10:10 Last Admin: 01/30/17 14:01 Dose: Not Given Lidocaine HCl (Xylocaine 2% Jelly) Confirm Administered Dose 10 ml .ROUTE .STK- MED ONE Stop: 01/31/17 05:16 Last Admin: 01/31/17 05:23 Dose: 10 ml Lidocaine HCl (Xylocaine 2% Jelly) 10 ml MUCMEM ONETIME ONE Stop: 01/31/17 05:16 Last Admin: 01/31/17 20:52 Dose: Not Given Lorazepam (Ativan Oral Concentrate 1mg/0.5 Ml U/D) 0.5 mg BUCCAL Q2H PRN PRN Reason: Anxiety Last Admin: 02/01/17 01:31 Dose: 0.5 mg - Exam Quality Assessment: urine catheter General: lethargic Lungs: Clear to auscultation, Normal respiratory effort Cardiovascular: Regular Rate, Regular Rhythm, No Murmurs Abdomen: bowel sounds present, soft, no tenderness, no distension Extremities: no edema - Problem List Review Problem List Initiated/Reviewed/Updated: Yes - My Orders Last 24 Hours: My Active Orders 02/01/17 02:25 LORazepam [Ativan ORAL Concentrate 1MG/0.5 ML U/D] 0.5 - 1 mg BUCCAL Q2H PRN 02/01/17 02:30 Scopolamine [Transderm-Scop] 1.5 mg TOP Q72H 02/01/17 07:18 Atropine Sulfate [Atropine 1%] 0 ml SL Q2H PRN 02/01/17 09:00 Non-Formulary Medication [NF Drug] 1 each TOP DAILY - Plan Plan:: ASSESSMENT AND PLAN RIGHT CVA-persistent weakness in the left face and left upper extremity. He is become more confused and lethargic. He has obvious difficulty with swallowing and he is at high risk for aspiration. -Continue aspirin and Plavix -No further evaluation or interventions -Family wishes requested the patient not be fed unless he requests something to eat -Thickened liquids and soft foods only PALLIATIVE CARE-patient is unable to make decisions for himself because of underlying dementia. Family feels strongly feels that it is consistent with his previously expressed wishes that we proceed with comfort cares only. DEMENTIA MAINTENANCE ISSUES -DVT prophylaxis; comfort cares only -GI prophylaxis; continue outpatient H2 colin therapy -Benavidez catheter; will remove Benavidez catheter placed in the emergency department -Nutrition; regular diet if tolerated -Nicotinic dependence; not required CODE STATUS-DNR/DNI, COMFORT CARES ONLY ADMISSION STATUS-this patient will be admitted to observation status, expect no more than a one night hospital stay for evaluation and management of problems as outlined above. DISPOSITION-anticipate discharge to longterm PRIMARY CARE PROVIDER-Dr. Alvarez
[2017-02-01] MEDS: Bisacodyl 10 MG Supp RECTAL PRN (15:14)
[2017-02-02] MEDS: Morphine 10 MG/0.5 ML Oral Syringe SL PRN ×2 (00:24→06:03)
[2017-02-02] MEDS: LORazepam ORAL Concentrate 1MG/0.5ML U/D BUCCAL PRN ×2 (02:56→10:57)
[2017-02-02 07:15] VITALS: BP 120/83
--- NOTE | 2017-02-02 10:50 | PCM.DCSUM1 ---
Discharge Summary - Hospital Course Brief History: This patient is an 86-year-old gentleman who was admitted through the emergency department to [facility], for comfort cares following an acute right CVA with left-sided weakness. - Discharge Data Discharge Date: 02/02/17 Discharge Disposition: DC/Tfer to SNF 03 Condition: Poor - Discharge Diagnosis/Problem(s) (1) CVA (cerebral vascular accident) SNOMED Code(s): 146398616 ICD Code: I63.9 - CEREBRAL INFARCTION, UNSPECIFIED Status: Acute Current Visit: Yes (2) Dementia SNOMED Code(s): 11049101 ICD Code: F03.90 - UNSPECIFIED DEMENTIA WITHOUT BEHAVIORAL DISTURBANCE Status: Chronic Current Visit: No Qualifiers: Dementia type: unspecified type Dementia behavioral disturbance: with behavioral disturbance Qualified Code(s): F03.91 - Unspecified dementia with behavioral disturbance (3) Palliative care status SNOMED Code(s): 581141680 ICD Code: Z51.5 - ENCOUNTER FOR PALLIATIVE CARE Status: Acute Current Visit: Yes - Patient Summary/Data Hospital Course: This patient is an 86-year-old gentleman with a known history of progressive dementia. Prior to admission for the past several weeks he developed progressive weakness and resulted in several falls prior to admission. Family was questioning as to whether he may have had several TIAs versus CVAs. On initial evaluation CT scan of the head was obtained which showed no acute abnormalities. While in the emergency department he developed acute onset of left facial and left upper extremity weakness. He was felt to have an acute CVA. Options for management were reviewed with the family, they refused transfer to [place] for further aggressive evaluation and intervention. They felt that based on the patient's previously expressed wishes that he would not want further aggressive evaluation or intervention. On admission he was treated with comfort cares only, initially given some IV fluids but these were stopped during hospital stay. At the time of discharge he continued to have significant left-sided weakness. He had been treated during his hospital stay with morphine and/or lorazepam as needed for comfort. His medications will be continued after discharge to care home. Later today at the care home he will be admitted to hospice. Activity will be as tolerated and he will resume his usual diet. Followup with Dr. Alvarez will be as needed. - Patient Instructions Diet: Usual Diet as Tolerated Activity: As Tolerated Other/Special Instructions: Hospice admission, after DC to NH - Discharge Plan Prescriptions/Med Rec: LORazepam [LORazepam Intensol] 0.5 mg BUCCAL Q2H PRN #30 ml PRN Reason: Agitation Morphine [Morphine 10 MG/0.5 ML Oral Syringe] 5 mg SL Q1H PRN #60 ml PRN Reason: Pain Home Medications: Home Meds Aspirin [Ecotrin] 325 mg PO DAILY 11/25/13 [History] Atenolol 75 mg PO DAILY 11/25/13 [History] Famotidine [Pepcid] 10 mg PO DAILY 11/25/13 [History] Ferrous Sulfate [Iron Supplement] 325 mg PO DAILY 11/25/13 [History] Clopidogrel Bisulfate [Clopidogrel] 75 mg PO DAILY 11/26/13 [History] LORazepam [LORazepam Intensol] 0.5 mg BUCCAL Q2H PRN #30 ml 02/02/17 [Rx] Morphine [Morphine 10 MG/0.5 ML Oral Syringe] 5 mg SL Q1H PRN #60 ml 02/02/17 [ Rx] Referrals: Noel Alvarez MD [Primary Care Provider] - - Discharge Summary/Plan Comment DC Time >30 min.: No - Patient Data Vitals - Most Recent: Last Vital Signs Temp 97.7 F 02/02/17 07:14 Pulse 59 L 02/02/17 07:14 Resp 20 02/02/17 07:14 BP 120/83 02/02/17 07:14 Pulse Ox 96 02/02/17 07:14 Weight - Most Recent: 217 lb 15.995 oz I&O - Last 24 hours: Intake & Output 02/01/17 02/02/17 02/02/17 22:59 06:59 14:59 Intake Total 120 Output Total 450 350 Balance -330 -350 Med Orders - Current: Current Medications Acetaminophen (Tylenol) 650 mg PO Q4H PRN PRN Reason: Pain (Mild 1-3)/fever Last Admin: 02/01/17 18:38 Dose: 650 mg Albuterol (Proventil Neb Soln) 2.5 mg NEB Q4H PRN PRN Reason: Shortness Of Breath/wheezing Last Admin: 01/30/17 21:23 Dose: 2.5 mg Aspirin (Ecotrin) 325 mg PO DAILY [facility] Last Admin: 03/22/17 08:28 Dose: 325 mg Atenolol (Tenormin) 75 mg PO DAILY [facility] Last Admin: 02/01/17 09:46 Dose: 75 mg Atropine Sulfate (Atropine 1%) 0 ml SL Q2H PRN PRN Reason: Congestion Bisacodyl (Dulcolax) 10 mg RECTAL DAILY PRN PRN Reason: Constipation Last Admin: 02/01/17 15:14 Dose: 10 mg Clopidogrel Bisulfate (Plavix) 75 mg PO DAILY [facility] Last Admin: 02/01/17 08:25 Dose: 75 mg Docusate Sodium (Colace) 100 mg PO BID PRN PRN Reason: Constipation Last Admin: 02/01/17 08:28 Dose: 100 mg Famotidine (Pepcid) 10 mg PO DAILY [facility] Last Admin: 02/01/17 08:27 Dose: 10 mg Ferrous Sulfate (Ferrous Sulfate) 325 mg PO DAILY [facility] Last Admin: 02/01/17 08:31 Dose: 325 mg Lorazepam (Ativan Oral Concentrate 1mg/0.5 Ml U/D) 0.5 - 1 mg BUCCAL Q2H PRN PRN Reason: Anxiety Last Admin: 02/02/17 02:56 Dose: 1 mg Magnesium Hydroxide (Milk Of Magnesia) 30 ml PO Q12H PRN PRN Reason: Constipation Morphine Sulfate (Morphine 10 Mg/0.5 Ml Oral Syringe) 5 mg SL Q1H PRN PRN Reason: Pain Last Admin: 02/02/17 06:03 Dose: 5 mg Scopolamine Patch (Check) 1 each TOP DAILY [facility] Last Admin: 02/01/17 09:09 Dose: Not Given Ondansetron HCl (Zofran Odt) 4 mg PO Q6H PRN PRN Reason: Nausea able to take PO Oxycodone HCl (Oxycodone) 5 mg PO Q4H PRN PRN Reason: Pain (moderate 4-6) Last Admin: 02/01/17 18:38 Dose: 5 mg Polyethylene Glycol (Miralax) 17 gm PO DAILY PRN PRN Reason: Constipation Last Admin: 02/01/17 08:40 Dose: 17 gm Scopolamine (Transderm-Scop) 1.5 mg TOP Q72H [facility] Last Admin: 02/01/17 02:36 Dose: 1.5 mg Sodium Chloride (Saline Flush) 10 ml FLUSH ASDIRECTED PRN PRN Reason: Keep Vein Open Discontinued Medications Atropine Sulfate (Atropine 1%) 0 ml SL Q2H PRN PRN Reason: Congestion Last Admin: 02/01/17 02:35 Dose: 2 drop Sodium Chloride (Normal Saline) 1,000 mls @ 500 mls/hr IV ASDIRECTED [facility] Last Admin: 01/30/17 09:45 Dose: 500 mls/hr Sodium Chloride (Normal Saline) 1,000 mls @ 125 mls/hr IV ASDIRECTED [facility] Last Admin: 01/31/17 04:15 Dose: 125 mls/hr Sodium Chloride (Normal Saline) 1,000 mls @ 50 mls/hr IV ASDIRECTED [facility] Last Admin: 01/31/17 16:24 Dose: 50 mls/hr Lidocaine HCl (Xylocaine 2% Jelly) Confirm Administered Dose 10 ml .ROUTE .STK- MED ONE Stop: 01/30/17 10:10 Last Admin: 01/30/17 14:01 Dose: Not Given Lidocaine HCl (Xylocaine 2% Jelly) Confirm Administered Dose 10 ml .ROUTE .STK- MED ONE Stop: 01/31/17 05:16 Last Admin: 01/31/17 05:23 Dose: 10 ml Lidocaine HCl (Xylocaine 2% Jelly) 10 ml MUCMEM ONETIME ONE Stop: 01/31/17 05:16 Last Admin: 01/31/17 20:52 Dose: Not Given Lorazepam (Ativan Oral Concentrate 1mg/0.5 Ml U/D) 0.5 mg BUCCAL Q2H PRN PRN Reason: Anxiety Last Admin: 02/01/17 01:31 Dose: 0.5 mg *Q Meaningful Use (DIS) - VTE *Q VTE Criteria *Q: VTE Pharmacological Contraindications *Q: Not Candidate LT Anticoag - Stroke *Q Stroke Criteria *Q: - AMI *Q AMI Criteria *Q:
[2017-02-02] MEDS: Aspirin 325 MG Tab.EC PO SCH (11:04)
[2017-02-02] MEDS: SCOPOLAMINE PATCH CHECK TOP SCH (11:04)
[2017-02-02] MEDS: Ferrous Sulfate 325 MG Tab PO SCH (11:04)
[2017-02-02] MEDS: Famotidine 20 MG Tab PO SCH (11:04)
[2017-02-02] MEDS: ATENOLOL 50 MG PO SCH (11:05)
[2017-02-02] MEDS: Clopidogrel 75 MG Tab (PTOM) PO SCH (11:05)
== END 2017-02-02 11:09 ==
LOC: JP.ED 07:28 → JP.MS 11:38
PROVIDERS: ADMIT Hospitalist; ATTEND Hospitalist
DX: I63.9 Cerebral infarction, unspecified (principal); F03.90 Unspecified dementia, unspecified severity, without behavioral disturbance, psychotic disturbance, mood disturbance, and anxiety; Z51.5 Encounter for palliative care; Z66 Do not resuscitate; Z88.0 Allergy status to penicillin; Z79.82 Long term (current) use of aspirin; Z79.899 Other long term (current) drug therapy; H91.90 Unspecified hearing loss, unspecified ear; I25.10 Atherosclerotic heart disease of native coronary artery without angina pectoris; I12.9 Hypertensive chronic kidney disease with stage 1 through stage 4 chronic kidney disease, or unspecified chronic kidney disease; N18.3 Chronic kidney disease, stage 3 (moderate); Z95.0 Presence of cardiac pacemaker; J44.9 Chronic obstructive pulmonary disease, unspecified; J84.10 Pulmonary fibrosis, unspecified
CPT/HCPCS: 36415; 70450; 80053; 81001; 85025; 93005; 96360; 96361; 99285; A9270; G0378; J7040; 93010; 99217; 99219; 99224; 99225